=== PATIENT | female | born 1955 | race African-American/Black ===

== ENCOUNTER 2017-05-03 10:35 | Day surgery (SDC) | payer OTHER ==
[2017-04-30 13:35] VITALS: BMI 20.4
[2017-05-03] MEDS ORDERED: PROPOFOL 20 ML ONE ×2 (11:17)
[2017-05-03 12:53] VITALS: TEMP 97.8
[2017-05-03 13:18] VITALS: BP 117/52; PULSE 56
== END 2017-05-03 13:25 | disposition home or self-care (01) ==
LOC: FASU-ENDO 10:35
PROVIDERS: ATTEND Internal Medicine Gastroenterology
PROC: 0DJD8ZZ Inspection of Lower Intestinal Tract, Via Natural or Artificial Opening Endoscopic (ICD-10-PCS; principal; 2017-05-03 12:26)
DX: Z12.11 Encounter for screening for malignant neoplasm of colon (principal)